=== PATIENT | female | born 1970 | race Caucasian/White ===

== ENCOUNTER → 2024-01-03 07:33 | Day surgery (SDC) | payer BC, SELFPAY | LOC: GI 07:33 | PROVIDERS: ATTENDING PHYSICIAN Surgery | DX: Z12.11 Encounter for screening for malignant neoplasm of colon (principal); Z80.0 Family history of malignant neoplasm of digestive organs; Q43.8 Other specified congenital malformations of intestine; K64.0 First degree hemorrhoids; K62.89 Other specified diseases of anus and rectum | CPT/HCPCS: G0105 ==